=== PATIENT | male | born 1955 ===

== ENCOUNTER → 2023-12-21 00:27 | Outpatient (CLI) | payer OTHER, SELFPAY ==
--- NOTE | 2023-12-21 | ETT_ITS ---
APPROVED REPORT Exam: Exercise Treadmill Patient Location: Out-Patient Room/Bed: Stress Nurse: Hernandez Ware RN and Luis Paige RN Ordering Provider:GILDA PANTOJA, Contact Number: [phone] BMI: 29.03 Baseline Rhythm: Sinus Bradycardia Comment: Occasional PAC's. Indications: Exertional Dyspnea; PVC's. Medical History Medical History: None. Cardiac Medications: Lisinopril. Allergies: None. Cardiac Risk Factors: Family Hx; Hypertension; Hyperlipidemia; Current Smoker. Previous Cardiac Procedures: None. Pretest Chest Pain Characteristics: Pt. c/o a ...0.25/10 deep pain, almost like a muscle pain, in my left chest. It's been continuous for a while. Exercise History: Indeterminate. Physical Disabilities: None. Lung Sounds: Clear bilaterally throughout, anterior and posterior. Heart Sounds: S1 and S2 auscultated. Stress Test Details Test: Exercise stress testing was performed using a Daniel protocol. Rest Stress HR Resting HR Supine: 54 bpm Max Heart Rate (APMHR): 154 bpm Resting HR Standin bpm Target HR (85% APMHR): 131 bpm Max HR Achieved: 143 bpm % of APMHR: 93 Recovery HR: 71 bpm HR response to stress: Normal HR response to stress. BP Resting BP Supine: 138/88 mmHg Resting BP Standin/78 mmHg Max BP: 162/82 mmHg Recovery BP: 130/60 mmHg BP response to stress: Normal blood pressure response to stress. ECG Resting ECG: Sinus Bradycardia. Ectopy: Occasional PAC's. Stress ECG: Sinus Tachycardia. ST Change: No significant ST segment changes noted. Arrhythmia: Occasional PAC's. Recovery ECG: Sinus Rhythm. Recovery ST Change: No significant ST segment changes noted Recovery Arrhythmia: Occasional PAC's. Clinical Reason for Termination: Target HR Achieved, Fatigue. Stress Symptoms: Generalized Fatigue. Exercise duration: 06 min59 sec Highest Stage Reached: Stage 2: 2.5 mph at 12% grade. Exercise capacity: 8.57 METs Angina Score: None Mckeon Treadmill Score: 6.6 Rate Pressure Product: [id number] Stress ECG Conclusion 1. Resting electrocardiogram was normal 2. Patient exercised on the Daniel protocol and completed a workload of 8.57 METS 3. Normal heart rate and blood pressure response to exercise. The patient achieved 93% of predicted heart rate for age 4. There was no electrocardiographic evidence of myocardial ischemia 5. There were no significant dysrhythmias Mckeon Treadmill Score is 6.6 which is Low risk. Stress Test Summary STAGE Time (mins) Speed (mph) Grade (%) HR BP SpO2 SYMPTOMS METS Supine 54 138/88 Standing 61 124/78 1 3 1.7 10 97 130/90 4.5 2 6 2.5 12 121 160/62 7 3 9 3.4 14 141 10 1 min recovery 106 160/80 3 min recovery 79 162/82 6 min recovery 71 130/60
== END ==
PROVIDERS: Visit Provider Family Medicine
DX: R06.09 Other forms of dyspnea (principal)
CPT/HCPCS: 93017